=== PATIENT | male | born 1950 | race Caucasian/White ===

== ENCOUNTER → 2020-04-02 | Outpatient (CLI) | payer OTHER, MEDICARE | LOC: M.RAD 13:01 | DX: I25.10 Atherosclerotic heart disease of native coronary artery without angina pectoris (principal); F32.1 Major depressive disorder, single episode, moderate; G89.4 Chronic pain syndrome; M54.5 Low back pain; Z00.00 Encounter for general adult medical examination without abnormal findings; M19.90 Unspecified osteoarthritis, unspecified site ==